=== PATIENT | female | born 1975 | race Caucasian/White ===

== ENCOUNTER 2021-12-10 18:07 | Emergency (ER) | payer OTHER ==
[~2021-12-10] VITALS: Ht 162.6 cm; Wt 68.0 kg
[2021-12-10 18:09] VITALS: BP 109/76
--- NOTE | 2021-12-10 18:15 | NUR ---
pt being taken to ct at this time
--- NOTE | 2021-12-10 18:20 | NUR ---
45 y/o female [facility], unknown place of residence, amr reports pt was found [place] bus stop, passerby called stating she was found on the ground. pt states she does not know if she passed out or how she fell. pt speech is slurred, demeanor overall agitated and yelling. upon assessment, pt has hematoma on right side of forehead, lac on bridge of nose (bleeding controlled). pt refusing pain scale, refusing to give any further information at this time. 18g iv established by amr in right hand. patient positioned for comfort. Hob elevated. Bed down. Ermd made aware of pt. pmh: unable to obtain allergy: unable to obtain med: unable to obtain
--- NOTE | 2021-12-10 18:26 | NUR ---
pt jumped off of ct table and is refusing ct per engagement director, charge heading to ct room at this time
[2021-12-10] MEDS ORDERED: LORazepam 2 MG/ML VIAL IVP ONE (18:50)
[2021-12-10] MEDS ORDERED: HALOPERIDOL IM 5 MG/ML VIAL IM ONE (18:50)
--- NOTE | 2021-12-10 19:38 | NUR ---
Pt report given to staci johnston. Transfer of care at this time.
[2021-12-10 20:14] LABS: BASOPHILS # (AUTO) 0.1 K/uL (0.00-0.22); BASOPHILS % (AUTO) 1.1 % (0.0-2.0); EOSINOPHILS % (AUTO) 0.2 % (0.0-4.0); HEMATOCRIT 43.1 % (36-48); HEMOGLOBIN 14.5 g/dL (12.0-16.0); LYMPHOCYTES # (AUTO) 2.4 K/uL (2.5-16.5); LYMPHOCYTES % (AUTO) 30.4 % (20.5-51.1); MEAN CORPUSCULAR HEMOGLOBIN 30 pg (27-31); MEAN CORPUSCULAR HGB CONC 34 g/dL (33-37); MEAN CORPUSCULAR VOLUME 88.1 fL (80-94); MONOCYTES # (AUTO) 0.4 K/uL (0.8-1.0); MONOCYTES % (AUTO) 4.7 % (1.7-9.3); NEUTROPHILS # (AUTO) 4.9 K/uL (1.8-7.7); NEUTROPHILS % (AUTO) 63.6 % (42.2-75.2); PLATELET COUNT (AUTO) 254 K/uL (140-450); RED BLOOD CELL COUNT(AUTO) 4.89 MIL/uL (4.20-5.40); RED CELL DISTRIBUTION WIDTH 13.9 % (11.6-13.7); WHITE BLOOD COUNT (AUTO) 7.8 K/uL (4.8-10.8)
[2021-12-10 20:30] LABS: ALBUMIN 3.7 g/dL (3.4-5.0); ANION GAP 12.6 (8-16); ASPARTATE AMINOTRANSFERASE 29 U/L (15-37); CARBON DIOXIDE 28.7 mmol/L (21-32); CHLORIDE 110 mmol/L (98-107); CREATININE 0.7 mg/dL (0.6-1.3); GFR ARICAN-AMERICAN 115 mL/min (>90); GLUCOSE 110 mg/dL (74-106); POTASSIUM 4.3 mmol/L (3.5-5.1); SODIUM SERUM 147 mmol/L (136-145); TOTAL BILIRUBIN 0.5 mg/dL (0.0-1.0); UREA NITROGEN, BLOOD 9 mg/dL (7-18)
[2021-12-10 20:46] LABS: SALICYLATE < 2.8 mg/dL (2.8-20.0)
--- NOTE | 2021-12-10 21:20 | NUR ---
PT WAS READJUSTED IN BED AND LEADS AND BP CUFF REPLACED, BLANKETS PLACED ON PT.
[2021-12-10 22:14] VITALS: BP 108/70
--- NOTE | 2021-12-10 22:15 | NUR ---
PT CLIMBED OUT OF BED AND LAID ON FLOOR. PT WAS ASSISTED BACK TO BED. PT RESPONDING CORRECTLY TO QUESTIONING WITH HEAD GESTURES ONLY. PT REFUSED TO OPEN HER EYES. PT RECONNECTED BACK ONTO VITALS MONITOR.; UNCOOPERATIVE IN OBTAINING VITALS.
--- NOTE | 2021-12-11 01:10 | NUR ---
PT LAYING IN BED SLEEPING EVIDENCE OF SNORING. BED IN LOWEST SETTING; RAILS UP X2; HOB IN LOW SETTING.
[2021-12-11 01:38] LABS: ACETAMINOPHEN < 0.5 ug/ml (10-30)
--- NOTE | 2021-12-11 03:10 | NUR ---
PT SELF REMOVED IV, IV FOUND ON PT FLOOR.
--- NOTE | 2021-12-11 03:11 | NUR ---
PT SEEN AMBULATING THROUGH ER HALLWAY WITH STEADY GAIT, UNASSISTED.
--- NOTE | 2021-12-11 03:11 | NUR ---
PT CLEEARED FOR DISCHARGE. PT LEFT FACILITY WITHOUT DISCHARGE INSTRUCTIONS
== END 2021-12-11 03:11 | disposition home or self-care (01) ==
LOC: MED 18:07
DX: S09.90XA Unspecified injury of head, initial encounter (principal); F10.129 Alcohol abuse with intoxication, unspecified; X58.XXXA Exposure to other specified factors, initial encounter; Y93.89 Activity, other specified; Y92.89 Other specified places as the place of occurrence of the external cause; Y99.8 Other external cause status; Y90.9 Presence of alcohol in blood, level not specified
CPT/HCPCS: 36415; 70450; 71045; 72125; 80053; 82550; 84484; 84703; 85025; 90471; 90715; 93005; 96372; 96374; 99285; G0480; G0482; J1630; J2060; Q0092

== ENCOUNTER 2023-03-20 16:44 | Emergency (ER) | payer OTHER ==
[~2023-03-20] VITALS: Ht 154.9 cm; Wt 90.7 kg
[2023-03-20 16:44] VITALS: BP 97/59
--- NOTE | 2023-03-20 16:45 | NUR ---
[facility] TO ER BED 6
[2023-03-20] MEDS ORDERED: NACL 0.9% 1,000 ML IV ONE (16:50)
--- NOTE | 2023-03-20 17:12 | NUR ---
PT BIB AMBULANCE, FOUND SLEEPING ON [place] TABLE AND UNRESPONSIVE, EMPTY BOTTLE OF ALCOHOL FOUND IN BACKPACK. PT TRIED TO PULL IV OUT, TRIED TO GET OFF BED. PT REORIENTED TO BED. SAFETY MAINTAINED.
--- NOTE | 2023-03-20 18:21 | NUR ---
Patient was 2 person wheelchair assisted to restroom.
--- NOTE | 2023-03-20 18:37 | NUR ---
IV removed, catheter intact and site benign. Applied folded 4x4 gauze and tape to stop bleeding.
--- NOTE | 2023-03-20 19:20 | NUR ---
Pt report given to STAN WILD. Transfer of care at this time.
--- NOTE | 2023-03-20 20:45 | NUR ---
PT AMBULATED TO ER BATHROOM UNASSISTED
--- NOTE | 2023-03-20 20:57 | NUR ---
pt instructed to get dressed for discharge. asked pt for a number to call for machine operator picker or an address to uber pt. pt states she cannot think of any number or place. pt states she is homeless, homeless resource packet provided to pt.
[2023-03-20 20:58] VITALS: BP 97/59
--- NOTE | 2023-03-20 20:58 | NUR ---
Patient discharged with v/s stable. Written and verbal after care instructions given and explained. Patient verbalized understanding. Ambulatory with steady gait. All questions addressed prior to discharge. Advised to follow up with PMD.
== END 2023-03-20 20:58 | disposition home or self-care (01) ==
LOC: MED 16:44
DX: F10.129 Alcohol abuse with intoxication, unspecified (principal); Z86.39 Personal history of other endocrine, nutritional and metabolic disease; Y90.8 Blood alcohol level of 240 mg/100 ml or more
CPT/HCPCS: 36415; 96360; 99283; G0482; J7030